=== PATIENT | male | born 1970 | race Caucasian/White ===

== ENCOUNTER 2020-08-03 14:01 | Inpatient (IN) | payer OTHER ==
--- NOTE | 2020-08-02 19:30 | NUR ---
The patient, ALONZO MORALES, 49 y/o, M admitted by LIBORIO PRETTY MD, was given written information regarding hospital policies, unit procedures and contact persons. PT IS FROM [place], NO GUARGDS ARE WITH THE PT. WENT OVER HOME MEALS OF WHIC HE HAS NONE. . HE IS NPO NOW. Valuables were checked and CHECKED HIS BELONGINGS.AND DOCUMENTED THE THE EMR. UPPER DENTURES. WELL LCRN
[~2020-08-03] VITALS: Ht 185.4 cm; Wt 102.1 kg
--- NOTE | 2020-08-03 14:29 | RAD ---
Chest AP portable at 1411: Reason for examination: Short of breath. The heart size is normal. Mediastinum shows a slight shift to the left. Lung granados however show a collapsed right lung field with a large right pneumothorax. Left lung field is clear. No acute bony abnormalities are seen. IMPRESSION: Collapsed right upper, middle and lower lobes with a large right pneumothorax. Electronically signed by: Alexandra Cortez MD (08/03/2020 2:26 PM) ANNIE
[2020-08-03] MEDS ORDERED: BUPIVACAINE MPF 0.5% 30 ML VIAL. INJ ONE (14:30)
[2020-08-03] MEDS ORDERED: LIDOCAINE 2%/EPI 1:100,000 20 ML VIAL. INJ ONE (14:30)
--- NOTE | 2020-08-03 14:30 | EKG ---
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
[2020-08-03 14:46] LABS: BASO # 0.1 x10^3/uL (0.0-0.2); BASO % 1 % (0-3); EOS # 0.1 x10^3/uL (0.0-0.7); EOS % 1 % (0-3); HEMATOCRIT 44.4 % (39.0-53.0); HEMOGLOBIN 15.4 g/dL (13.0-17.5); LYMPH # 1.7 x10^3/uL (1.0-4.8); LYMPH % 18 % (24-48); MEAN CORPUSCULAR HEMOGLOBIN 31 pg (25-35); MEAN CORPUSCULAR HGB CONC 35 g/dL (31-37); MEAN CORPUSCULAR VOLUME 88 fL (79-100); MONO # 1.2 x10^3/uL (0.0-1.1); MONO % 12 % (0-9); NEUT # 6.4 x10^3/uL (1.8-7.7); NEUT % 68 % (31-73); PLATELET COUNT 331 x10^3/uL (140-400); RED BLOOD COUNT 5.03 x10^6/uL (4.30-5.70); WHITE BLOOD COUNT 9.4 x10^3/uL (4.0-11.0)
[2020-08-03 14:53] LABS: BILIRUBIN,URINE NEGATIVE (NEG); CLARITY,URINE CLEAR; COLOR,URINE YELLOW; NITRITE,URINE NEGATIVE (NEG); PROTEIN,URINE NEGATIVE (NEG-TRACE)
--- NOTE | 2020-08-03 14:57 | PHYS DOC ---
Past Medical History Past Medical History: COPD Additional Past Medical Histor: VENTRAL HERNIA Past Surgical History: No Surgical History Smoking Status: Former Smoker Alcohol Use: None Drug Use: None General Adult EDM: Chief Complaint: OTHER COMPLAINTS HPI: HPI: Patient is a 49-year-old male brought to the ED from [facility] due to shortness of breath and radiographic evidence of pneumothorax by the facility. Patient states 07/31/2020 he was lifting weights when he felt a sharp right-sided chest wall pain and ever since he has been having trouble breathing. Patient has never had this happen before. Patient says his pain is minimal. He denies any traumatic events related to this pain. Denies history of prior pneumothorax. Review of Systems: Review of Systems: Constitutional: Denies fever or chills Eyes: Denies redness or eye pain HENT: Denies nasal congestion or sore throat Respiratory: Endorses shortness of breath Cardiovascular: Endorses chest pain, denies palpitations GI: Denies abdominal pain, nausea, or vomiting : Denies dysuria or hematuria Musculoskeletal: Denies back pain or joint pain Integument: Denies rash or skin lesions Neurologic: Denies headache, focal weakness or sensory changes Complete systems were reviewed and found to be within normal limits, except as documented in this note. Current Medications: Current Medications Medications (Trade) Dose Ordered Sig/[facility] Start Time Stop Time Status Last Admin Dose Admin Bupivacaine HCl (Sensorcaine Mpf 0.5%) 30 ml 1X ONCE 08/03/20 14:30 08/03/20 14:31 DC 08/03/20 14:41 30 ML Fentanyl Citrate (Fentanyl 2ml Vial) 75 mcg 1X ONCE 08/03/20 15:00 08/03/20 15:01 Lidocaine/ Epinephrine (LIDOCAINE 2%-EPI 1:100,000 multi-dose) 20 ml 1X ONCE 08/03/20 14:30 08/03/20 14:31 DC 08/03/20 14:41 20 ML Allergies: Allergies: Allergies Coded Allergies Type Severity Reaction Last Updated Verified No Known Drug Allergies 08/03/20 No Physical Exam: PE: Constitutional: Well developed, well nourished, no acute distress, non-toxic appearance HENT: Normocephalic, atraumatic Eyes: PERRL, EOMI, conjunctiva normal, no discharge Neck: Normal range of motion, no tenderness, supple Lungs & Thorax: Increased breath sounds on left thoracic area, right chest with limited breath sounds, no crepitence Abdomen: Soft, no tenderness, no guarding/rebound tenderness/distention Skin: Warm, dry, no erythema, no rash Extremities: No tenderness, ROM intact, no edema Neurologic: Alert and oriented X 3, no focal deficits noted Psychologic: Affect normal, judgment normal Current Patient Data: Vital Signs: Vital Signs Date Time Temp Pulse Resp B/P (MAP) Pulse Ox O2 Delivery O2 Flow Rate FiO2 08/03/20 14:10 98.1 112 22 157/95 (115) 96 Room Air 98.1 EKG: EK08/03/2020 at 1423 hours, heart rate 117 bpm, sinus tachycardia, QRS 138 ms, QT/QTc 330/465 ms, incomplete right bundle branch block Radiology/Procedures: Radiology/Procedures: PROCEDURE: CHEST AP ONLY Chest AP portable at 1411: Reason for examination: Short of breath. The heart size is normal. Mediastinum shows a slight shift to the left. Lung granados however show a collapsed right lung field with a large right pneumothorax. Left lung field is clear. No acute bony abnormalities are seen. IMPRESSION: Collapsed right upper, middle and lower lobes with a large right pneumothorax. Electronically signed by: Alexandra Cortez MD (08/03/2020 2:26 PM) JAMEY PROCEDURE: CHEST AP ONLY Exam: Chest one view INDICATION: Status post chest tube insertion TECHNIQUE: Frontal view of the chest Comparisons: 08/03/2020 FINDINGS: The cardiomediastinal silhouette and pulmonary vessels are within normal limits. Redemonstration of a large right pneumothorax with complete collapse of the right lung. Right-sided chest tube is seen within the soft tissues of the right lateral chest wall and does not enter the thoracic cavity. IMPRESSION: Malpositioned right chest tube, which is entirely the right lateral chest wall. Persistent large right pneumothorax. FOR INTERNAL CODING PURPOSES Critical result: Findings discussed with JOHN MCDANIEL at 08/03/2020 5:17 PM. RESULT CODE: (C) Electronically signed by: Cherelle Danielle MD (08/03/2020 5:18 PM) [id number] PROCEDURE: CHEST AP ONLY Exam: Chest one view INDICATION: Chest tube TECHNIQUE: Frontal view of the chest Comparisons: 08/03/2020 FINDINGS: Interval placement of a right-sided chest tube with tip projecting in the right midlung. The cardiomediastinal silhouette and pulmonary vessels are within normal limits. Improved aeration of the right lung with small persistent pneumothorax at the right lung apex. IMPRESSION: Interval placement of right-sided chest tube with improved aeration of the right lung. Persistent small right pneumothorax. Electronically signed by: Cherelle Danielle MD (08/03/2020 6:59 PM) [id number] Course & Med Decision Making: Course & Med Decision Making Pertinent Labs and Imaging studies reviewed. (See chart for details) Patient is a 49-year-old male brought to the ED by correctional facility due to shortness of breath and radiographic evidence of right pneumothorax. Physical exam findings and chest x-ray performed in the ED no evidence of right pneumothorax. Plan is to place chest tube and admit to hospital for observation and management.. Patient requiring admission for further evaluation and treatment. Discussed with Dr. Mcdowell who is in agreement with admission. Discussed findings and plan with patient, who acknowledges understanding and agreement. Dragon Disclaimer: Dragon Disclaimer: This electronic medical record was generated, in whole or in part, using a voice recognition dictation system. Chest Tube Chest Tube : Chest Tube Location: forth interspace (right) Size of Japanese Tube (cm): 8 Chest Tube Procedure: sterile drapes applied, sterile dressing applied Anesthesia: 0.5% Sensorcaine (50/50 mix with 2% Lidocaine with epi) Volume Anesthetic (ccs): 10 Graves of Air Whitley: Yes Number of Attempts: 2 Tube Drainage: see nurses notes Tube Sutured to Skin: Yes Post Procedure CXR?: Yes Progress Written consent obtained. Time out performed. Hand hygiene utilized. Sterile attire donned. Right chest wall cleaned with ChloraPrep. Anesthesia obtained via a 25-gauge hypodermic needle with (10) mL's of 50/50 mix of Bupivicaine 0.5% and Lidocaine 2% with epinephrine. 8 swazi small chest tube placed at 4th interspace with graves of air. Difficulty with pushing tube further in chest. Tube sutured in place with sterile dressing applied. CXR obtained with findings of malpositioned tube. Tube therefore removed and 2nd attempt with better positioning. Repeat CXR with good positioning. Patient tolerated procedure well and without difficulty. Departure Departure Impression: Primary Impression: Spontaneous pneumothorax Disposition: ADMITTED INPATIENT Admitting Physician: DONTA (July) Condition: GUARDED Justicifation of Admission Dx: Justifications for Admission: Justification of Admission Dx: Yes Comments: Spontaneous pneumothorax Critical Care Time Critical care time was 30 minutes which includes time at bedside, spent in di scussion of patient's care with specialists and/or family members, with interpretation of laboratory and/or radiological studies and is exclusive of procedures. JOHN MCDANIEL DO Aug 03, 2020 14:57
[2020-08-03 14:58] LABS: GFR 78.8
[2020-08-03] MEDS ORDERED: fentaNYL PF VIAL 100 MCG/2 ML VIAL IV ONE ×2 (15:00→18:15)
[2020-08-03 15:05] LABS: ALBUMIN 4.1 g/dL (3.4-5.0); ALBUMIN/GLOBULIN RATIO 1.1 (1.0-1.7); MAGNESIUM 2.3 mg/dL (1.8-2.4); TOTAL BILIRUBIN 0.4 mg/dL (0.2-1.0)
[2020-08-03 15:08] LABS: PROTHROMBIN TIME PATIENT 13.5 SEC (11.7-14.0)
[2020-08-03 15:12] LABS: BACTERIA,URINE 0 /HPF (0-FEW); RBC,URINE 0 /HPF (0-2); WBC,URINE 0 /HPF (0-4)
[2020-08-03] MEDS ORDERED: KETOROLAC 15 MG/ML VIAL. ONE (16:17)
[2020-08-03] MEDS ORDERED: KETOROLAC 15 MG/ML VIAL. IVP ONE (16:30)
[2020-08-03] MEDS ORDERED: fentaNYL PF VIAL 100 MCG/2 ML VIAL IVP ONE (16:30)
--- NOTE | 2020-08-03 17:21 | RAD ---
Exam: Chest one view INDICATION: Status post chest tube insertion TECHNIQUE: Frontal view of the chest Comparisons: 08/03/2020 FINDINGS: The cardiomediastinal silhouette and pulmonary vessels are within normal limits. Redemonstration of a large right pneumothorax with complete collapse of the right lung. Right-sided chest tube is seen within the soft tissues of the right lateral chest wall and does not enter the thoracic cavity. IMPRESSION: Malpositioned right chest tube, which is entirely the right lateral chest wall. Persistent large right pneumothorax. FOR INTERNAL CODING PURPOSES Critical result: Findings discussed with JOHN MCDANIEL at 08/03/2020 5:17 PM. RESULT CODE: (C) Electronically signed by: Cherelle Danielle MD (08/03/2020 5:18 PM) [id number]
[2020-08-03] MEDS ORDERED: ONDANSETRON PF 4 MG/2 ML VIAL. IV PRN ×2 (17:30→18:00)
--- NOTE | 2020-08-03 17:55 | PDOC1 ---
History and Physical Date of Admission Date of Admission DATE: 08/03/20 TIME: 17:54 Identification/Chief Complaint Chief Complaint Chest pain Source Source: Chart review, Patient History of Present Illness History of Present Illness Mr Green is a 49-year-old male w/ PMHx COPD, ventral hernia who brought to the ED from [facility] due to shortness of breath and radiographic evidence of pneumothorax by the facility. On 07/31/2020 he was lifting weights when he felt short of breath and a few hours later noted a sharp right-sided chest wall pain and persistent dyspnea on exertion since then. EKG noted with HR117 bpm, sinus tachycardia, QRS 138 ms, QT/QTc 330/465 ms, incomplete right bundle branch block CXR reveals large right pneumothorax with left shift mediastinum. Labs with INR 1.1, WBC 9.4 Hb 15.4, platelets 331, NA 140, K4, BUN 14, CR 1, glucose 104, troponin 0, CK 551. Chest tube initially placed in ED slipped out, postplacement chest x-ray showed no improvement in pneumothorax, and chest tube was replaced and significant improvement with small residual pneumothorax after replacing chest tube placement. After his second chest tube patient did note some right-sided sharp pain had obvious increase in his visible ease of breathing. No airleak noted on Pleurx and was hooked up to suction. Admit to hospital for observation and management.. Past Medical History Pulmonary: COPD Past Surgical History Past Surgical History: Hernia Repair Family History Family History: High Cholestrol Social History Smoke: Quit ALCOHOL: none Drugs: None Current Problem List Problem List Problems Medical Problems: (1) Spontaneous pneumothorax Status: Acute Current Medications Current Medications Current Medications Lidocaine/ Epinephrine (LIDOCAINE 2%-EPI 1:100,000 multi-dose) 20 ml 1X ONCE INJ Last administered on 08/03/20at 14:41; Start 08/03/20 at 14:30; Stop 08/03/20 at 14:31; Status DC Bupivacaine HCl (Sensorcaine Mpf 0.5%) 30 ml 1X ONCE INJ Last administered on 08/03/20at 14:41; Start 08/03/20 at 14:30; Stop 08/03/20 at 14:31; Status DC Fentanyl Citrate (Fentanyl 2ml Vial) 75 mcg 1X ONCE IV Last administered on 08/03/20at 14:56; Start 08/03/20 at 15:00; Stop 08/03/20 at 15:01; Status DC Ketorolac Tromethamine (Toradol 15mg Vial) 15 mg STK-MED ONCE .ROUTE ; Start 08/03/20 at 16:17; Stop 08/03/20 at 16:17; Status DC Ketorolac Tromethamine (Toradol 15mg Vial) 15 mg 1X ONCE IVP Last administered on 08/03/20at 16:44; Start 08/03/20 at 16:30; Stop 08/03/20 at 16:31; Status DC Fentanyl Citrate (Fentanyl 2ml Vial) 50 mcg 1X ONCE IVP Last administered on 08/03/20at 16:43; Start 08/03/20 at 16:30; Stop 08/03/20 at 16:31; Status DC Ondansetron HCl (Zofran) 4 mg PRN Q8HRS PRN IV NAUSEA/VOMITING; Start 08/03/20 at 17:30; Stop 08/04/20 at 17:29 Allergies Allergies: Coded Allergies: No Known Drug Allergies (Unverified , 08/03/20) ROS General: YES: Fatigue, Malaise; No: Chills, Night Sweats, Appetite, Other PSYCHOLOGICAL ROS: No: Anxiety, Behavioral Disorder, Concentration difficultie, Decreased libido, Depression, Disorientation, Hallucinations, Hostility, Irritablity, Memory difficulties, Mood Swings, Obsessive thoughts, Physical abuse, Sexual abuse, Sleep disturbances, Suicidal ideation, Other Eyes: No Blurry vision, No Decreased vision, No Double vision, No Dry eyes, No Excessive tearing, No Eye Pain, No Itchy Eyes, No Loss of vision, No Photophobia, No Scotomata, No Uses contacts, No Uses glasses, No Other HEENT: No: Heacaches, Visual Changes, Hearing change, Nasal congestion, Nasal discharge, Oral lesions, Sinus pain, Sore Throat, Epistaxis, Sneezing, Snoring, Tinnitus, Vertigo, Vocal changes, Other ALLERGY AND IMMUNOLOGY: No: Hives, Insect Bite Sensitivity, Itchy/Watery Eyes, Nasal Congestion, Post Nasal Drip, Seasonal Allergies, Other Hematological and Lymphatic: No: Bleeding Problems, Blood Clots, Blood Transfusions, Brusing, Night Sweats, Pallor, Swollen Lymph Nodes, Other ENDOCRINE: No: Breast Changes, Galactorrhea, Hair Pattern Changes, Hot Flashes, Malaise/lethargy, Mood Swings, Palpitations, Polydipsia/polyuria, Skin Changes, Temperature Intolerance, Unexpected Weight Changes, Other Breast: No New/Changing Breast Lumps, No Nipple changes, No Nipple discharge, No Other Respiratory: YES: Cough, Pleuritic Pain, Shortness of breath; No: Hemoptysis, Orthopnea, SOB with excertion, Sputum Changes, Stridor, Tachypnea, Wheezing, Other Cardiovascular: yes Chest Pain; No Palpitations, No Orthopnea, No Paroxysmal Noc. Dyspnea, No Edema, No Lt Headedness, No Other Gastrointestinal: No Nausea, No Vomiting, No Abdominal Pain, No Diarrhea, No Constipation, No Melena, No Hematochezia, No Other Genitourinary: No Dysuria, No Frequency, No Incontinence, No Hematuria, No Retention, No Discharge, No Urgency, No Pain, No Flank Pain, No Other, No , No , No , No , No , No , No Musculoskeletal: No Gait Disturbance, No Joint Pain, No Joint Stiffness, No Joint Swelling, No Muscle Pain, No Muscular Weakness, No Pain In:, No Swelling In:, No Other Neurological: No Behavorial Changes, No Bowel/Bladder ControlChng, No Confusion, No Dizziness, No Gait Disturbance, No Headaches, No Impaired Acetylene Operator rd/balance, No Memory Loss, No Numbness/Tingling, No Seizures, No Speech Problems, No Tremors, No Visual Changes, No Weakness, No Other Skin: No Dry Skin, No Eczema, No Hair Changes, No Lumps, No Mole Changes, No Mottling, No Nail Changes, No Pruritus, No Rash, No Skin Lesion Changes, No Other, No Acne Physical Exam General: Alert, Oriented X3, Cooperative, mild distress HEENT: Atraumatic, PERRLA, EOMI, Mucous membr. moist/pink Lungs: Clear to auscultation, Normal air movement, Other (Right mid-axillary chest tube small bore) Abdomen: Normal bowel sounds, Soft, No tenderness, No hepatosplenomegaly, No masses Rectal Exam: not examined Extremities: No clubbing, No cyanosis, No edema, Normal pulses, No tenderness/swelling Skin: No rashes, No breakdown, No significant lesion Neuro: Normal gait, Normal speech, Strength at 5/5 X4 ext, Normal tone, Sensation intact, Cranial nerves 3-12 NL, Reflexes 2+ Psych/Mental Status: Mental status NL, Mood NL Vitals Vitals Vital Signs Date Time Temp Pulse Resp B/P (MAP) Pulse Ox O2 Delivery O2 Flow Rate FiO2 08/03/20 16:53 88 142/77 (98) 94 Room Air 08/03/20 14:10 98.1 22 98.1 Labs Labs Laboratory Tests Test 08/03/20 14:12 08/03/20 14:40 White Blood Count 9.4 x10^3/uL (4.0-11.0) Red Blood Count 5.03 x10^6/uL (4.30-5.70) Hemoglobin 15.4 g/dL (13.0-17.5) Hematocrit 44.4 % (39.0-53.0) Mean Corpuscular Volume 88 fL (79-100) Mean Corpuscular Hemoglobin 31 pg (25-35) Mean Corpuscular Hemoglobin Concent 35 g/dL (31-37) Red Cell Distribution Width 13.0 % (11.5-14.5) Platelet Count 331 x10^3/uL (140-400) Neutrophils (%) (Auto) 68 % (31-73) Lymphocytes (%) (Auto) 18 % (24-48) Monocytes (%) (Auto) 12 % (0-9) Eosinophils (%) (Auto) 1 % (0-3) Basophils (%) (Auto) 1 % (0-3) Neutrophils # (Auto) 6.4 x10^3/uL (1.8-7.7) Lymphocytes # (Auto) 1.7 x10^3/uL (1.0-4.8) Monocytes # (Auto) 1.2 x10^3/uL (0.0-1.1) Eosinophils # (Auto) 0.1 x10^3/uL (0.0-0.7) Basophils # (Auto) 0.1 x10^3/uL (0.0-0.2) Prothrombin Time 13.5 SEC (11.7-14.0) Prothromb Time International Ratio 1.1 (0.8-1.1) Activated Partial Thromboplast Time 29 SEC (24-38) Sodium Level 140 mmol/L (136-145) Potassium Level 4.0 mmol/L (3.5-5.1) Chloride Level 106 mmol/L (98-107) Carbon Dioxide Level 28 mmol/L (21-32) Anion Gap 6 (6-14) Blood Urea Nitrogen 14 mg/dL (8-26) Creatinine 1.0 mg/dL (0.7-1.3) Estimated GFR (Cockcroft-Gault) 78.8 BUN/Creatinine Ratio 14 (6-20) Glucose Level 104 mg/dL (70-99) Calcium Level 9.0 mg/dL (8.5-10.1) Magnesium Level 2.3 mg/dL (1.8-2.4) Total Bilirubin 0.4 mg/dL (0.2-1.0) Aspartate Amino Transf (AST/SGOT) 37 U/L (15-37) Alanine Aminotransferase (ALT/SGPT) 31 U/L (16-63) Alkaline Phosphatase 91 U/L (46-116) Creatine Kinase 551 U/L (39-308) Creatine Kinase MB (Mass) 1.5 ng/mL (0.0-3.6) Creatine Kinase MB Relative Index 0.3 % (0-4) Troponin I Quantitative < 0.017 ng/mL (0.000-0.055) Total Protein 8.0 g/dL (6.4-8.2) Albumin 4.1 g/dL (3.4-5.0) Albumin/Globulin Ratio 1.1 (1.0-1.7) Urine Collection Type Void Urine Color Yellow Urine Clarity Clear Urine pH 6.0 (<5.0-8.0) Urine Specific Bentley 1.020 (1.000-1.030) Urine Protein Negative mg/dL (NEG-TRACE) Urine Glucose (UA) Negative mg/dL (NEG) Urine Ketones (Stick) Negative mg/dL (NEG) Urine Blood Negative (NEG) Urine Nitrite Negative (NEG) Urine Bilirubin Negative (NEG) Urine Urobilinogen Dipstick 1.0 mg/dL (0.2 mg/dL) Urine Leukocyte Esterase Negative (NEG) Urine RBC 0 /HPF (0-2) Urine WBC 0 /HPF (0-4) Urine Squamous Epithelial Cells None /LPF Urine Bacteria 0 /HPF (0-FEW) Urine Mucus Marked /LPF Laboratory Tests Test 08/03/20 14:12 08/03/20 14:40 White Blood Count 9.4 x10^3/uL (4.0-11.0) Red Blood Count 5.03 x10^6/uL (4.30-5.70) Hemoglobin 15.4 g/dL (13.0-17.5) Hematocrit 44.4 % (39.0-53.0) Mean Corpuscular Volume 88 fL (79-100) Mean Corpuscular Hemoglobin 31 pg (25-35) Mean Corpuscular Hemoglobin Concent 35 g/dL (31-37) Red Cell Distribution Width 13.0 % (11.5-14.5) Platelet Count 331 x10^3/uL (140-400) Neutrophils (%) (Auto) 68 % (31-73) Lymphocytes (%) (Auto) 18 % (24-48) Monocytes (%) (Auto) 12 % (0-9) Eosinophils (%) (Auto) 1 % (0-3) Basophils (%) (Auto) 1 % (0-3) Neutrophils # (Auto) 6.4 x10^3/uL (1.8-7.7) Lymphocytes # (Auto) 1.7 x10^3/uL (1.0-4.8) Monocytes # (Auto) 1.2 x10^3/uL (0.0-1.1) Eosinophils # (Auto) 0.1 x10^3/uL (0.0-0.7) Basophils # (Auto) 0.1 x10^3/uL (0.0-0.2) Prothrombin Time 13.5 SEC (11.7-14.0) Prothromb Time International Ratio 1.1 (0.8-1.1) Activated Partial Thromboplast Time 29 SEC (24-38) Sodium Level 140 mmol/L (136-145) Potassium Level 4.0 mmol/L (3.5-5.1) Chloride Level 106 mmol/L (98-107) Carbon Dioxide Level 28 mmol/L (21-32) Anion Gap 6 (6-14) Blood Urea Nitrogen 14 mg/dL (8-26) Creatinine 1.0 mg/dL (0.7-1.3) Estimated GFR (Cockcroft-Gault) 78.8 BUN/Creatinine Ratio 14 (6-20) Glucose Level 104 mg/dL (70-99) Calcium Level 9.0 mg/dL (8.5-10.1) Magnesium Level 2.3 mg/dL (1.8-2.4) Total Bilirubin 0.4 mg/dL (0.2-1.0) Aspartate Amino Transf (AST/SGOT) 37 U/L (15-37) Alanine Aminotransferase (ALT/SGPT) 31 U/L (16-63) Alkaline Phosphatase 91 U/L (46-116) Creatine Kinase 551 U/L (39-308) Creatine Kinase MB (Mass) 1.5 ng/mL (0.0-3.6) Creatine Kinase MB Relative Index 0.3 % (0-4) Troponin I Quantitative < 0.017 ng/mL (0.000-0.055) Total Protein 8.0 g/dL (6.4-8.2) Albumin 4.1 g/dL (3.4-5.0) Albumin/Globulin Ratio 1.1 (1.0-1.7) Urine Collection Type Void Urine Color Yellow Urine Clarity Clear Urine pH 6.0 (<5.0-8.0) Urine Specific Bentley 1.020 (1.000-1.030) Urine Protein Negative mg/dL (NEG-TRACE) Urine Glucose (UA) Negative mg/dL (NEG) Urine Ketones (Stick) Negative mg/dL (NEG) Urine Blood Negative (NEG) Urine Nitrite Negative (NEG) Urine Bilirubin Negative (NEG) Urine Urobilinogen Dipstick 1.0 mg/dL (0.2 mg/dL) Urine Leukocyte Esterase Negative (NEG) Urine RBC 0 /HPF (0-2) Urine WBC 0 /HPF (0-4) Urine Squamous Epithelial Cells None /LPF Urine Bacteria 0 /HPF (0-FEW) Urine Mucus Marked /LPF Images Images CXR: The heart size is normal. Mediastinum shows a slight shift to the left. Lung granados however show a collapsed right lung field with a large right pneumothorax. Left lung field is clear. No acute bony abnormalities are seen. IMPRESSION: Collapsed right upper, middle and lower lobes with a large right pneumothorax. VTE Prophylaxis Ordered VTE Prophylaxis Devices: No VTE Pharmacological Prophylaxi: Yes Assessment/Plan Assessment/Plan A/P: Chest pain - likely 2/2 PTX, will trend troponins, monitor on telemetry overnight. Tramadol/tylenol and toradol/morphine for pain control. Right pneumothorax - spontaneous, likely exertional with h/o COPD. Will cont on O2. Repeat CXR in AM. Cont low intermittent suction overnight to pleur-ex system. Consult Pulm Ex-smoker - reinforced cessation FEN - General diet PPX - ambulatory FULL CODE Dispo - inpatient for resolution Justifications for Admission Other Justification LIBORIO PRETTY MD Aug 03, 2020 17:55
[2020-08-03] MEDS ORDERED: ALBUTEROL SULFATE 2.5 MG/3 ML NEBU. NEB PRN (18:00)
[2020-08-03] MEDS ORDERED: guaiFENesin DM 200MG/20MG 10 ML SYRUP PO PRN (18:00)
--- NOTE | 2020-08-03 19:02 | RAD ---
Exam: Chest one view INDICATION: Chest tube TECHNIQUE: Frontal view of the chest Comparisons: 08/03/2020 FINDINGS: Interval placement of a right-sided chest tube with tip projecting in the right midlung. The cardiomediastinal silhouette and pulmonary vessels are within normal limits. Improved aeration of the right lung with small persistent pneumothorax at the right lung apex. IMPRESSION: Interval placement of right-sided chest tube with improved aeration of the right lung. Persistent small right pneumothorax. Electronically signed by: Cherelle Danielle MD (08/03/2020 6:59 PM) [id number]
[2020-08-03 19:30] VITALS: BP 159/85
[2020-08-03] MEDS ORDERED: diphenhydrAMINE HCL 25 MG CAPSULE PO PRN (20:30)
[2020-08-03] MEDS ORDERED: ZOLPIDEM 5 MG TABLET. PO PRN (20:30)
[2020-08-03] MEDS ORDERED: ACETAMINOPHEN 325 MG TABLET. PO PRN (20:30)
[2020-08-03] MEDS ORDERED: MORPHINE SULFATE 2 MG/ML VIAL. IV PRN (20:30)
[2020-08-03] MEDS ORDERED: ASCO500T4 PO (21:03)
[2020-08-03] MEDS ORDERED: IBUP-1007 PO (21:03)
[2020-08-03 23:30] VITALS: BP 131/83
[2020-08-04 03:40] VITALS: BP 140/87
[2020-08-04 04:17] LABS: BASO % 1 % (0-3); EOS # 0.1 x10^3/uL (0.0-0.7); EOS % 1 % (0-3); HEMATOCRIT 41.4 % (39.0-53.0); HEMOGLOBIN 14.1 g/dL (13.0-17.5); LYMPH # 1.8 x10^3/uL (1.0-4.8); LYMPH % 20 % (24-48); MEAN CORPUSCULAR HEMOGLOBIN 30 pg (25-35); MEAN CORPUSCULAR HGB CONC 34 g/dL (31-37); MEAN CORPUSCULAR VOLUME 89 fL (79-100); MONO # 1.2 x10^3/uL (0.0-1.1); MONO % 13 % (0-9); NEUT # 5.8 x10^3/uL (1.8-7.7); NEUT % 65 % (31-73); PLATELET COUNT 299 x10^3/uL (140-400); RED BLOOD COUNT 4.65 x10^6/uL (4.30-5.70); RED CELL DISTRIBUTION WIDTH 13.2 % (11.5-14.5)
[2020-08-04 04:42] LABS: CALCIUM 8.3 mg/dL (8.5-10.1); GFR 78.8; POTASSIUM 4.2 mmol/L (3.5-5.1)
[2020-08-04 07:00] VITALS: BP 120/78
--- NOTE | 2020-08-04 08:21 | RAD ---
CHEST AP ONLY History: Reason: Pneumothorax f/u / Spl. Instructions: / History: Comparison: August 03, 2020 Findings: Decreased right pneumothorax. Stable right pigtail pleural catheter. Patchy right midlung opacities, unchanged. No pleural effusion. Normal heart size. Impression: 1. Decreased right pneumothorax. Stable pigtail pleural catheter. 2. Patchy right midlung opacity, unchanged. Electronically signed by: Kostas Varela DO (08/04/2020 8:18 AM) [id number]
[2020-08-04] MEDS ORDERED: IPRATRPIUM/ALBUTEROL 0.5/2.5MG 3 ML NEBU. NEB SCH (08:30)
--- NOTE | 2020-08-04 08:56 | CONS ---
DATE OF CONSULTATION: 08/04/2020 I was asked to see this 49-year-old gentleman for shortness of breath and pneumothorax. HISTORY OF PRESENT ILLNESS: The patient has a history of [id number] smoking, quit smoking 7 years ago. He has COPD. He was brought to the Emergency Room from a correctional facility yesterday. On Thursday (today is Thursday), he had some chest pain while he was lifting weights. The next day he did have some shortness of breath and cough. Finally, he was brought to the Emergency Room yesterday. His chest x-ray showed a large right pneumothorax. This is his first pneumothorax. A chest tube was placed in the Emergency Room. He does have cough with some sputum production. He has discomfort on his chest tube site. He has had shortness of breath. He is on albuterol, which he uses p.r.n. PAST MEDICAL HISTORY: COPD. He had COVID-19 in March and ventral hernia. ALLERGIES: No known drug allergies. MEDICATIONS: Currently, he is on p.r.n. morphine. SOCIAL HISTORY: History of [id number] smoking, stopped smoking 7 years ago. REVIEW OF SYSTEMS: As mentioned above, other systems otherwise negative. PHYSICAL EXAMINATION: GENERAL: This is an overweight gentleman. VITAL SIGNS: His O2 saturation on room air is 93%, respiratory rate 20, heart rate is 82, blood pressure 140/87, temperature 98.8. HEENT: Normocephalic and atraumatic. Pupils are equal, round, and reactive to light. Nose is clear. Throat is clear. NECK: There is no JVD, lymphadenopathy, or thyromegaly. CARDIOVASCULAR: Regular rate and rhythm. PMI is nondisplaced. CHEST: On inspection, there is a right chest tube in place. LUNGS: There are bilateral diminished breath sounds. ABDOMEN: Soft and obese. Bowel sounds are good. EXTREMITIES: There is no edema. LYMPHATICS: There is no lymphadenopathy. SKIN: Has tattoos. NEUROLOGIC: Alert and oriented. LABORATORY DATA: I reviewed the following lab data. His chest x-ray on arrival to the Emergency Room showed right large pneumothorax. Chest x-ray after chest tube placement showed improved aeration with a small right apical pneumothorax. WBC 9, hemoglobin 14.1, platelets of 299. Sodium 142, potassium 4.2, chloride 106, CO2 of 26, glucose 93, BUN 17, and creatinine 1. Troponin less than 0.017. INR 1.1, PTT 29. IMPRESSION: 1. Dyspnea secondary to pneumothorax. 2. Right spontaneous pneumothorax status post chest tube. 3. Chronic obstructive pulmonary disease. 4. Ex-smoker. 5. Ventral hernia. 6. History of COVID-19 in March, he was not hospitalized, he was in correctional facility. PLAN AND RECOMMENDATIONS: 1. Continue not smoking. 2. Titrate FiO2 to keep O2 saturation 92%. 3. I will review his chest x-ray this morning. Continue chest tube suction -20 at this time. 4. Start bronchodilator. 5. He would require a CT of the chest. 6. Start Lovenox for DVT prophylaxis. 7. The findings and recommendations were discussed with the patient and RN. Thank you very much for allowing me to participate in the care of this very nice gentleman. TOBY LA M.D. : CHICA/yanni JOB#: [id number] / [id number]
[2020-08-04] MEDS: ENOXAPARIN 40 MG/0.4 ML SYRINGE. SQ SCH (09:16)
--- NOTE | 2020-08-04 10:29 | PDOC ---
[facility] PROGRESS NOTE Date of Service DOS: DATE: 08/04/20 TIME: 10:20 Chief Complaint Chief Complaint SOA, spontaneous pneumothorax History of Present Illness History of Present Illness 08/04/2020 Pt seen and examined. Chart reviewed. Discussed with RN. Pt sitting up in bed, NAD. Clean, dry, intact dressing: stable R pigtail pleural cath Tolerating chest tube well, denies pain, denies SOA. Vitals/I&O Vitals/I&O: Vital Signs Date Time Temp Pulse Resp B/P (MAP) Pulse Ox O2 Delivery O2 Flow Rate FiO2 08/04/20 07:00 97.7 81 22 120/78 (92) 92 Room Air 97.7 I & O 08/03/20 08/03/20 08/04/20 15:00 23:00 07:00 Intake Total 760 ml Output Total 200 ml Balance 560 ml Physical Exam General: Alert, Oriented X3, Cooperative, mild distress Heart: Regular rate Abdomen: Normal bowel sounds, Soft, No tenderness, No hepatosplenomegaly, No masses Extremities: No clubbing, No cyanosis, No edema, Normal pulses, No tenderness/swelling Skin: No rashes, No breakdown, No significant lesion Labs Labs: Laboratory Tests Test 08/03/20 14:12 08/03/20 14:40 08/04/20 04:00 White Blood Count 9.4 x10^3/uL (4.0-11.0) 9.0 x10^3/uL (4.0-11.0) Red Blood Count 5.03 x10^6/uL (4.30-5.70) 4.65 x10^6/uL (4.30-5.70) Hemoglobin 15.4 g/dL (13.0-17.5) 14.1 g/dL (13.0-17.5) Hematocrit 44.4 % (39.0-53.0) 41.4 % (39.0-53.0) Mean Corpuscular Volume 88 fL (79-100) 89 fL (79-100) Mean Corpuscular Hemoglobin 31 pg (25-35) 30 pg (25-35) Mean Corpuscular Hemoglobin Concent 35 g/dL (31-37) 34 g/dL (31-37) Red Cell Distribution Width 13.0 % (11.5-14.5) 13.2 % (11.5-14.5) Platelet Count 331 x10^3/uL (140-400) 299 x10^3/uL (140-400) Neutrophils (%) (Auto) 68 % (31-73) 65 % (31-73) Lymphocytes (%) (Auto) 18 % (24-48) 20 % (24-48) Monocytes (%) (Auto) 12 % (0-9) 13 % (0-9) Eosinophils (%) (Auto) 1 % (0-3) 1 % (0-3) Basophils (%) (Auto) 1 % (0-3) 1 % (0-3) Neutrophils # (Auto) 6.4 x10^3/uL (1.8-7.7) 5.8 x10^3/uL (1.8-7.7) Lymphocytes # (Auto) 1.7 x10^3/uL (1.0-4.8) 1.8 x10^3/uL (1.0-4.8) Monocytes # (Auto) 1.2 x10^3/uL (0.0-1.1) 1.2 x10^3/uL (0.0-1.1) Eosinophils # (Auto) 0.1 x10^3/uL (0.0-0.7) 0.1 x10^3/uL (0.0-0.7) Basophils # (Auto) 0.1 x10^3/uL (0.0-0.2) 0.0 x10^3/uL (0.0-0.2) Prothrombin Time 13.5 SEC (11.7-14.0) Prothromb Time International Ratio 1.1 (0.8-1.1) Activated Partial Thromboplast Time 29 SEC (24-38) Sodium Level 140 mmol/L (136-145) 142 mmol/L (136-145) Potassium Level 4.0 mmol/L (3.5-5.1) 4.2 mmol/L (3.5-5.1) Chloride Level 106 mmol/L (98-107) 106 mmol/L (98-107) Carbon Dioxide Level 28 mmol/L (21-32) 26 mmol/L (21-32) Anion Gap 6 (6-14) 10 (6-14) Blood Urea Nitrogen 14 mg/dL (8-26) 17 mg/dL (8-26) Creatinine 1.0 mg/dL (0.7-1.3) 1.0 mg/dL (0.7-1.3) Estimated GFR (Cockcroft-Gault) 78.8 78.8 BUN/Creatinine Ratio 14 (6-20) Glucose Level 104 mg/dL (70-99) 93 mg/dL (70-99) Calcium Level 9.0 mg/dL (8.5-10.1) 8.3 mg/dL (8.5-10.1) Magnesium Level 2.3 mg/dL (1.8-2.4) Total Bilirubin 0.4 mg/dL (0.2-1.0) Aspartate Amino Transf (AST/SGOT) 37 U/L (15-37) Alanine Aminotransferase (ALT/SGPT) 31 U/L (16-63) Alkaline Phosphatase 91 U/L (46-116) Creatine Kinase 551 U/L (39-308) Creatine Kinase MB (Mass) 1.5 ng/mL (0.0-3.6) Creatine Kinase MB Relative Index 0.3 % (0-4) Troponin I Quantitative < 0.017 ng/mL (0.000-0.055) < 0.017 ng/mL (0.000-0.055) Total Protein 8.0 g/dL (6.4-8.2) Albumin 4.1 g/dL (3.4-5.0) Albumin/Globulin Ratio 1.1 (1.0-1.7) Urine Collection Type Void Urine Color Yellow Urine Clarity Clear Urine pH 6.0 (<5.0-8.0) Urine Specific [place] 1.020 (1.000-1.030) Urine Protein Negative mg/dL (NEG-TRACE) Urine Glucose (UA) Negative mg/dL (NEG) Urine Ketones (Stick) Negative mg/dL (NEG) Urine Blood Negative (NEG) Urine Nitrite Negative (NEG) Urine Bilirubin Negative (NEG) Urine Urobilinogen Dipstick 1.0 mg/dL (0.2 mg/dL) Urine Leukocyte Esterase Negative (NEG) Urine RBC 0 /HPF (0-2) Urine WBC 0 /HPF (0-4) Urine Squamous Epithelial Cells None /LPF Urine Bacteria 0 /HPF (0-FEW) Urine Mucus Marked /LPF Review of Systems Review of Systems: Pt denies pain, pt denies SOA, pt denies NVD. Assessment and Plan Assessmemt and Plan Problems Medical Problems: (1) Spontaneous pneumothorax Status: Acute Assessment: Spontaneous pneumo Plan: Continue chest tube monitoring Cardiac monitoring Daily CXR Home meds DVT prophylaxis PT/OT Full code Awaiting COVID result Hope to DC chest tube when OK with Pulm Appreciate specialist input. Comment Review of Relevant I have reviewed the following items elisa (where applicable) has been applied. Medications: Current Medications Medications (Trade) Dose Ordered Sig/David Route PRN Reason Start Time Stop Time Status Last Admin Dose Admin Lidocaine/ Epinephrine (LIDOCAINE 2%-EPI 1:100,000 multi-dose) 20 ml 1X ONCE INJ 08/03/20 14:30 08/03/20 14:31 DC 08/03/20 14:41 Bupivacaine HCl (Sensorcaine Mpf 0.5%) 30 ml 1X ONCE INJ 08/03/20 14:30 08/03/20 14:31 DC 08/03/20 14:41 Fentanyl Citrate (Fentanyl 2ml Vial) 75 mcg 1X ONCE IV 08/03/20 15:00 08/03/20 15:01 DC 08/03/20 14:56 Ketorolac Tromethamine (Toradol 15mg Vial) 15 mg 1X ONCE IVP 08/03/20 16:30 08/03/20 16:31 DC 08/03/20 16:44 Fentanyl Citrate (Fentanyl 2ml Vial) 50 mcg 1X ONCE IVP 08/03/20 16:30 08/03/20 16:31 DC 08/03/20 16:43 Fentanyl Citrate (Fentanyl 2ml Vial) 50 mcg 1X ONCE IV 08/03/20 18:15 08/03/20 18:16 DC 08/03/20 18:21 Enoxaparin Sodium (Lovenox 40mg Syringe) 40 mg Q24H SQ 08/04/20 09:00 08/04/20 09:16 Justifications for Admission Other Justification LIVAN IRENE III DO Aug 04, 2020 10:29
[2020-08-04 11:00] VITALS: BP 133/83
[2020-08-04] MEDS: IPRATRPIUM/ALBUTEROL 0.5/2.5MG 3 ML NEBU. NEB SCH ×3 (11:59→19:47)
[2020-08-04] MEDS: traMADol 50 MG TABLET PO PRN (14:48)
[2020-08-04 15:00] VITALS: BP 142/77
[2020-08-04 19:20] VITALS: BP 149/93
[2020-08-04 23:40] VITALS: BP 151/78
[2020-08-05 03:45] VITALS: BP 129/84
[2020-08-05 07:00] VITALS: BP 131/86
[2020-08-05] MEDS: IPRATRPIUM/ALBUTEROL 0.5/2.5MG 3 ML NEBU. NEB SCH ×4 (08:00→20:26)
[2020-08-05] MEDS: ENOXAPARIN 40 MG/0.4 ML SYRINGE. SQ SCH (09:20)
[2020-08-05] MEDS: traMADol 50 MG TABLET PO PRN ×2 (09:20→21:26)
--- NOTE | 2020-08-05 09:54 | PDOC ---
PULMONARY PROGRESS NOTES DATE: 08/05/20 TIME: 09:44 Subjective chest discomfort on ct area no sob, has occ cough Vitals Vital Signs Date Time Temp Pulse Resp B/P (MAP) Pulse Ox O2 Delivery O2 Flow Rate FiO2 08/05/20 09:20 96 Room Air 08/05/20 07:00 98.9 78 18 131/86 (101) 98.9 ROS: No Nausea General: Alert, Oriented X4 HEENT: Other (nc at perrl ) Lungs: Other ( r ct deminished bs) Cardiovascular: S1, S2 Abdomen: Soft, Non-tender Neuro Exam: Alert Extremities: No Edema Skin: Warm Labs Laboratory Tests Test 08/03/20 14:12 08/03/20 14:40 08/04/20 04:00 White Blood Count 9.4 x10^3/uL (4.0-11.0) 9.0 x10^3/uL (4.0-11.0) Red Blood Count 5.03 x10^6/uL (4.30-5.70) 4.65 x10^6/uL (4.30-5.70) Hemoglobin 15.4 g/dL (13.0-17.5) 14.1 g/dL (13.0-17.5) Hematocrit 44.4 % (39.0-53.0) 41.4 % (39.0-53.0) Mean Corpuscular Volume 88 fL (79-100) 89 fL (79-100) Mean Corpuscular Hemoglobin 31 pg (25-35) 30 pg (25-35) Mean Corpuscular Hemoglobin Concent 35 g/dL (31-37) 34 g/dL (31-37) Red Cell Distribution Width 13.0 % (11.5-14.5) 13.2 % (11.5-14.5) Platelet Count 331 x10^3/uL (140-400) 299 x10^3/uL (140-400) Neutrophils (%) (Auto) 68 % (31-73) 65 % (31-73) Lymphocytes (%) (Auto) 18 % (24-48) 20 % (24-48) Monocytes (%) (Auto) 12 % (0-9) 13 % (0-9) Eosinophils (%) (Auto) 1 % (0-3) 1 % (0-3) Basophils (%) (Auto) 1 % (0-3) 1 % (0-3) Neutrophils # (Auto) 6.4 x10^3/uL (1.8-7.7) 5.8 x10^3/uL (1.8-7.7) Lymphocytes # (Auto) 1.7 x10^3/uL (1.0-4.8) 1.8 x10^3/uL (1.0-4.8) Monocytes # (Auto) 1.2 x10^3/uL (0.0-1.1) 1.2 x10^3/uL (0.0-1.1) Eosinophils # (Auto) 0.1 x10^3/uL (0.0-0.7) 0.1 x10^3/uL (0.0-0.7) Basophils # (Auto) 0.1 x10^3/uL (0.0-0.2) 0.0 x10^3/uL (0.0-0.2) Prothrombin Time 13.5 SEC (11.7-14.0) Prothromb Time International Ratio 1.1 (0.8-1.1) Activated Partial Thromboplast Time 29 SEC (24-38) Sodium Level 140 mmol/L (136-145) 142 mmol/L (136-145) Potassium Level 4.0 mmol/L (3.5-5.1) 4.2 mmol/L (3.5-5.1) Chloride Level 106 mmol/L (98-107) 106 mmol/L (98-107) Carbon Dioxide Level 28 mmol/L (21-32) 26 mmol/L (21-32) Anion Gap 6 (6-14) 10 (6-14) Blood Urea Nitrogen 14 mg/dL (8-26) 17 mg/dL (8-26) Creatinine 1.0 mg/dL (0.7-1.3) 1.0 mg/dL (0.7-1.3) Estimated GFR (Cockcroft-Gault) 78.8 78.8 BUN/Creatinine Ratio 14 (6-20) Glucose Level 104 mg/dL (70-99) 93 mg/dL (70-99) Calcium Level 9.0 mg/dL (8.5-10.1) 8.3 mg/dL (8.5-10.1) Magnesium Level 2.3 mg/dL (1.8-2.4) Total Bilirubin 0.4 mg/dL (0.2-1.0) Aspartate Amino Transf (AST/SGOT) 37 U/L (15-37) Alanine Aminotransferase (ALT/SGPT) 31 U/L (16-63) Alkaline Phosphatase 91 U/L (46-116) Creatine Kinase 551 U/L (39-308) Creatine Kinase MB (Mass) 1.5 ng/mL (0.0-3.6) Creatine Kinase MB Relative Index 0.3 % (0-4) Troponin I Quantitative < 0.017 ng/mL (0.000-0.055) < 0.017 ng/mL (0.000-0.055) Total Protein 8.0 g/dL (6.4-8.2) Albumin 4.1 g/dL (3.4-5.0) Albumin/Globulin Ratio 1.1 (1.0-1.7) Urine Collection Type Void Urine Color Yellow Urine Clarity Clear Urine pH 6.0 (<5.0-8.0) Urine Specific [place] 1.020 (1.000-1.030) Urine Protein Negative mg/dL (NEG-TRACE) Urine Glucose (UA) Negative mg/dL (NEG) Urine Ketones (Stick) Negative mg/dL (NEG) Urine Blood Negative (NEG) Urine Nitrite Negative (NEG) Urine Bilirubin Negative (NEG) Urine Urobilinogen Dipstick 1.0 mg/dL (0.2 mg/dL) Urine Leukocyte Esterase Negative (NEG) Urine RBC 0 /HPF (0-2) Urine WBC 0 /HPF (0-4) Urine Squamous Epithelial Cells None /LPF Urine Bacteria 0 /HPF (0-FEW) Urine Mucus Marked /LPF Medications Active Scripts Medications Dose Route/Sig Max Daily Dose Days Date Category Ibuprofen 600 Mg Tablet 600 Mg PO PRN Q6HRS PRN 08/03/20 Reported Vitamin C (Ascorbic Acid) 500 Mg Tablet 500 Mg PO SUPPLEMENT PRN 08/03/20 Reported No Known Medications Prior To Admisstion (Info) Each 1 Each MC DAILY 08/03/20 Reported Impression . IMPRESSION: 1. Dyspnea secondary to pneumothorax. 2. Right spontaneous pneumothorax status post chest tube. 3. Chronic obstructive pulmonary disease. 4. Ex-smoker. 5. Ventral hernia. 6. History of COVID-19 in March, he was not hospitalized, he was in correctional facility. Plan . PLAN AND RECOMMENDATIONS: 1. Continue not smoking. 2. Titrate FiO2 to keep O2 saturation 92%. 3. cxr reviewed bulla vs ptx ct to water seal cxr pa and lat in am may need ct bf chest tube removal 4. bronchodilator. 5. He would require a CT of the chest at some point. 6. Lovenox for DVT prophylaxis. 7. The findings and recommendations were discussed with the patient and RN. TOBY LA MD Aug 05, 2020 09:53
--- NOTE | 2020-08-05 10:08 | PDOC ---
[employer] PROGRESS NOTE Date of Service DOS: DATE: 08/05/20 TIME: 10:01 Chief Complaint Chief Complaint SOA, spontaneous pneumothorax History of Present Illness History of Present Illness 08/05/2020 Patient seen and examined Discussed with RN Reviewed chart Patient was sitting in bed with NAD Clean, dry, intact dressing - right chest tube with suction Pulm following 08/04/2020 Pt seen and examined. Chart reviewed. Discussed with RN. Pt sitting up in bed, NAD. Clean, dry, intact dressing: stable R pigtail pleural cath Tolerating chest tube well, denies pain, denies SOA. Vitals/I&O Vitals/I&O: Vital Signs Date Time Temp Pulse Resp B/P (MAP) Pulse Ox O2 Delivery O2 Flow Rate FiO2 08/05/20 09:20 96 Room Air 08/05/20 07:00 98.9 78 18 131/86 (101) 98.9 I & O 08/04/20 08/04/20 08/05/20 15:00 23:00 07:00 Intake Total 400 ml 800 ml 120 ml Output Total 300 ml 250 ml 600 ml Balance 100 ml 550 ml -480 ml Physical Exam General: Alert, Cooperative, No acute distress Heart: Regular rate Lungs: Other (Right chest tube with suction) Abdomen: Normal bowel sounds, Soft, No tenderness, No hepatosplenomegaly, No masses Extremities: No clubbing, No cyanosis, No edema, Normal pulses, No tenderness/ swelling Skin: No rashes, No breakdown, No significant lesion Review of Systems Review of Systems: Denies pain Denies weakness Assessment and Plan Assessmemt and Plan Problems Medical Problems: (1) Spontaneous pneumothorax Status: Acute Assessment: Dyspnea secondary to spontaneous pneumothorax COPD - ex-smoker Ventral hernia History of Covid-19 in March 2020 - at correctional facility Plan: Continue R chest tube suction Cardiac monitoring Repeat CXR when ok with pulm Home meds DVT prophylaxis PT/OT Full code Hope to DC chest tube when ok with Pulm Appreciate subspecialty input. Comment Review of Relevant I have reviewed the following items elisa (where applicable) has been applied. Medications: Current Medications Medications (Trade) Dose Ordered Sig/David Route PRN Reason Start Time Stop Time Status Last Admin Dose Admin Albuterol/ Ipratropium (Duoneb) 3 ml RTQID NEB 08/04/20 12:00 08/05/20 08:00 Justifications for Admission Other Justification LIVAN IRENE III DO Aug 05, 2020 10:08
[2020-08-05 11:00] VITALS: BP 132/91
--- NOTE | 2020-08-05 11:30 | RAD ---
Chest radiograph 08/05/2020 9:43 AM INDICATION: Pneumothorax COMPARISON: None available TECHNIQUE: Frontal and lateral views of the chest are provided. FINDINGS: The cardiomediastinal silhouette is within normal limits. There are no pleural effusions. There is no pulmonary vascular congestion. Right apical bullous airspace disease noted. Adjacent pneumothorax would be difficult to assess. Findings are not significantly changed since the prior examination. The lungs are clear. No significant osseous abnormality is identified. IMPRESSION: Bullous airspace disease noted at the right lung apex. No associated pneumothorax is difficult to evaluate. No significant interval change is a prior examination. Electronically signed by: Jeanette Huang MD (08/05/2020 11:27 AM) [facility]
[2020-08-05 15:00] VITALS: BP 154/101
[2020-08-05 19:22] VITALS: BP 140/87
[2020-08-05] MEDS: KETOROLAC 30 MG/ML VIAL. IVP PRN (21:27)
[2020-08-05 22:50] VITALS: BP 131/86
[2020-08-06 03:27] VITALS: BP 123/77
[2020-08-06 07:00] VITALS: BP 133/80
[2020-08-06] MEDS: IPRATRPIUM/ALBUTEROL 0.5/2.5MG 3 ML NEBU. NEB SCH ×4 (07:19→20:39)
--- NOTE | 2020-08-06 08:36 | RAD ---
Chest PA and lateral 08/06/2020. Reason for exam: Follow-up pneumothorax. Comparison is made with a study of the previous day. A small bore chest tube remains in place on the right. There is still some lucency at the apex. This could be a loculated pneumothorax or bulla. It appears unchanged. There is no other evidence for pneumothorax. No new infiltrate or effusion is seen. Heart size is normal. IMPRESSION: Stable appearance. Electronically signed by: Huber Coronado Jr., MD (08/06/2020 8:33 AM) [facility]
[2020-08-06] MEDS: traMADol 50 MG TABLET PO PRN ×2 (09:07→20:18)
[2020-08-06] MEDS: ENOXAPARIN 40 MG/0.4 ML SYRINGE. SQ SCH (09:07)
--- NOTE | 2020-08-06 10:01 | PDOC ---
PULMONARY PROGRESS NOTES DATE: 08/06/20 TIME: 09:55 Subjective pt. remains on R/A No SOA, No cough, No CP No overnight concerns from Nursings Vitals Vital Signs Date Time Temp Pulse Resp B/P (MAP) Pulse Ox O2 Delivery O2 Flow Rate FiO2 08/06/20 09:07 96 Room Air 08/06/20 07:00 97.4 89 16 133/80 (97) 97.4 ROS: No Nausea, No Chest Pain, No Abdominal Pain, No Increase Cough General: Alert, Oriented X4 HEENT: Other (nc at perrl ) Lungs: Clear Cardiovascular: S1, S2 Abdomen: Soft, Non-tender Neuro Exam: Alert Extremities: No Edema Skin: Warm Medications Active Scripts Medications Dose Route/Sig Max Daily Dose Days Date Category Ibuprofen 600 Mg Tablet 600 Mg PO PRN Q6HRS PRN 08/03/20 Reported Vitamin C (Ascorbic Acid) 500 Mg Tablet 500 Mg PO SUPPLEMENT PRN 08/03/20 Reported No Known Medications Prior To Admisstion (Info) Each 1 Each MC DAILY 08/03/20 Reported Impression . IMPRESSION: 1. Dyspnea secondary to pneumothorax. 2. Right spontaneous pneumothorax status post chest tube. 3. Chronic obstructive pulmonary disease. 4. Ex-smoker. 5. Ventral hernia. 6. History of COVID-19 in March, he was not hospitalized, he was in correctional facility. Plan . PLAN AND RECOMMENDATIONS: Remains on Room air S/P right side lateral Chest tube placed 08/04, chest tube now on water seal for 24 hours, no air leak CXR reviewed: cannot exclude apical pneumothorax, however blebs in [place], will obtain non-contrast CT If no pneumothorax on CT, will clamp Chest tube for 24 hours and if stable will D/C chest tube Continue not smoking bronchodilator. DVT/GI PPX D/W RN and PT ERIKA WYLIE MD Aug 06, 2020 10:01
--- NOTE | 2020-08-06 11:17 | RAD ---
CT chest without contrast 08/06/2020. Reason for exam: Pneumothorax. Helical noncontrast images were performed. Sagittal and coronal reconstructions were obtained. Exposure: One or more of the following individualized dose reduction techniques were utilized for this examination: 1. Automated exposure control 2. Adjustment of the mA and/or kV according to patient size 3. Use of iterative reconstruction technique. Correlation is made with radiographs done earlier in the day. FINDINGS: There is a small bore chest tube entering on the right and extending into the minor fissure. There is a thin-walled area of air at the right lung apex. This appears to have a couple thin crossing septa. There is an adjacent smaller cavity just inferior and lateral to this. Anterior to the cavity is a small amount of air along the lung surface. Findings are thought to indicate bullous disease at the apex with minimal residual pneumothorax anteriorly. There is some atelectasis in the lower lobe and mild infiltrate posteriorly in the right upper lobe adjacent to the major fissure. The lungs otherwise are clear. There is a trace of pleural fluid on the right. The central airways show no obstruction. No enlarged lymph nodes are seen. Images through the upper abdomen show no abnormality. IMPRESSION: There is an encapsulated area of air density the right lung apex thought to represent a large bulla with smaller adjacent bulla. There is a small anterior pneumothorax on the right. Electronically signed by: Huber Coronado Jr., MD (08/06/2020 11:15 AM) [facility]
[2020-08-06 11:30] VITALS: BP 122/72
[2020-08-06] MEDS: FAMOTIDINE 20 MG TABLET. PO SCH ×2 (14:41→20:18)
--- NOTE | 2020-08-06 14:51 | PDOC ---
PROGRESS NOTES Date of Service: DATE: 08/06/20 TIME: 14:44 Chief Complaint Chief Complaint Dyspnea secondary to pneumothorax. Right spontaneous pneumothorax status post chest tube. History of Chronic obstructive pulmonary disease. Ex-smoker. quit about 7 years ago History of COVID-19 in March, he was not hospitalized, he was in correctional facility. Plan: Follow results of CAT scan If no further pneumothorax chest tube will be clamped for 24 hours Hopefully discontinue chest tube in the a.m. Supportive measures History of Present Illness History of Present Illness 08/06/2020 No acute events reported overnight, case discussed with nursing staff patient in no acute distress no complaints during my visit Recommendations from pulmonology noted 08/05/2020 Patient seen and examined Discussed with RN Reviewed chart Patient was sitting in bed with NAD Clean, dry, intact dressing - right chest tube with suction Pulm following 08/04/2020 Pt seen and examined. Chart reviewed. Discussed with RN. Pt sitting up in bed, NAD. Clean, dry, intact dressing: stable R pigtail pleural cath Tolerating chest tube well, denies pain, denies SOA. Vitals Vitals Vital Signs Date Time Temp Pulse Resp B/P (MAP) Pulse Ox O2 Delivery O2 Flow Rate FiO2 08/06/20 11:47 95 Room Air 08/06/20 11:30 97.5 82 16 122/72 (89) 97.5 Physical Exam General: Alert, Cooperative, No acute distress Heart: Regular rate Lungs: Clear Abdomen: Normal bowel sounds, Soft, No tenderness, No hepatosplenomegaly, No masses Extremities: No clubbing, No cyanosis, No edema, Normal pulses, No tenderness/swelling Skin: No rashes, No breakdown, No significant lesion Assessment and Plan Assessmemt and Plan Problems Medical Problems: (1) Spontaneous pneumothorax Status: Acute Comment Review of Relevant I have reviewed the following items elisa (where applicable) has been applied. Medications Current Medications Lidocaine/ Epinephrine (LIDOCAINE 2%-EPI 1:100,000 multi-dose) 20 ml 1X ONCE INJ Last administered on 08/03/20at 14:41; Start 08/03/20 at 14:30; Stop 08/03/20 at 14:31; Status DC Bupivacaine HCl (Sensorcaine Mpf 0.5%) 30 ml 1X ONCE INJ Last administered on 08/03/20at 14:41; Start 08/03/20 at 14:30; Stop 08/03/20 at 14:31; Status DC Fentanyl Citrate (Fentanyl 2ml Vial) 75 mcg 1X ONCE IV Last administered on 08/03/20at 14:56; Start 08/03/20 at 15:00; Stop 08/03/20 at 15:01; Status DC Ketorolac Tromethamine (Toradol 15mg Vial) 15 mg STK-MED ONCE .ROUTE ; Start 08/03/20 at 16:17; Stop 08/03/20 at 16:17; Status DC Ketorolac Tromethamine (Toradol 15mg Vial) 15 mg 1X ONCE IVP Last administered on 08/03/20at 16:44; Start 08/03/20 at 16:30; Stop 08/03/20 at 16:31; Status DC Fentanyl Citrate (Fentanyl 2ml Vial) 50 mcg 1X ONCE IVP Last administered on 08/03/20at 16:43; Start 08/03/20 at 16:30; Stop 08/03/20 at 16:31; Status DC Ondansetron HCl (Zofran) 4 mg PRN Q8HRS PRN IV NAUSEA/VOMITING; Start 08/03/20 at 17:30; Stop 08/03/20 at 17:57; Status DC Ondansetron HCl (Zofran) 4 mg PRN Q4HRS PRN IV NAUSEA/VOMITING; Start 08/03/20 at 18:00 Albuterol Sulfate (Ventolin Neb Soln) 2.5 mg PRN Q2HRS PRN NEB SHORTNESS OF BREATH; Start 08/03/20 at 18:00 Guaifenesin (Robitussin Dm) 10 ml PRN Q6HRS PRN PO COUGH; Start 08/03/20 at 18:00 Fentanyl Citrate (Fentanyl 2ml Vial) 50 mcg 1X ONCE IV Last administered on 08/03/20at 18:21; Start 08/03/20 at 18:15; Stop 08/03/20 at 18:16; Status DC Tramadol HCl (Ultram) 50 mg PRN Q6HRS PRN PO MODERATE-SEVERE PAIN Last administered on 08/06/20at 09:07; Start 08/03/20 at 20:30 Acetaminophen (Tylenol) 650 mg PRN Q6HRS PRN PO MILD PAIN / TEMP > 100.3'F; Start 08/03/20 at 20:30 Ketorolac Tromethamine (Toradol 30mg Vial) 30 mg PRN Q6HRS PRN IVP MODERATE PAIN Last administered on 08/05/20at 21:27; Start 08/03/20 at 20:30; Stop 08/08/20 at 20:29 Morphine Sulfate (Morphine Sulfate) 2 mg PRN Q4HRS PRN IV SEVERE PAIN 7-10; Start 08/03/20 at 20:30 Diphenhydramine HCl (Benadryl) 50 mg PRN QHS PRN PO INSOMNIA 2ND CHOICE; Start 08/03/20 at 20:30 Zolpidem Tartrate (Ambien) 5 mg PRN QHS PRN PO INSOMNIA; Start 08/03/20 at 20:30 Albuterol/ Ipratropium (Duoneb) 3 ml RTQID NEB ; Start 08/04/20 at 08:30; Stop 08/04/20 at 09:09; Status DC Enoxaparin Sodium (Lovenox 40mg Syringe) 40 mg Q24H SQ Last administered on 08/06/20at 09:07; Start 08/04/20 at 09:00 Albuterol/ Ipratropium (Duoneb) 3 ml RTQID NEB Last administered on 08/06/20at 11:19; Start 08/04/20 at 12:00 Famotidine (Pepcid) 20 mg BID PO Last administered on 08/06/20at 14:41; Start 08/06/20 at 11:00 Active Scripts Active Reported Ibuprofen 600 Mg Tablet 600 Mg PO PRN Q6HRS PRN Vitamin C (Ascorbic Acid) 500 Mg Tablet 500 Mg PO SUPPLEMENT PRN No Known Medications Prior To Admisstion (Info) Each 1 Each DAILY Vitals/I & O Vital Sign - Last 24 Hours 08/05/20 08/05/20 08/05/20 08/05/20 15:00 16:31 19:22 20:00 Temp 98.1 97.6 98.1 97.6 Pulse 101 90 Resp 20 16 B/P (MAP) 154/101 (118) 140/87 (104) Pulse Ox 93 94 O2 Delivery Room Air Room Air Room Air Room Air 08/05/20 08/05/20 08/05/20 08/05/20 20:28 21:26 22:26 22:50 Temp 97.6 97.6 Pulse 93 Resp 18 18 16 B/P (MAP) 131/86 (101) Pulse Ox 98 98 93 93 O2 Delivery Room Air Room Air Room Air Room Air 08/06/20 08/06/20 08/06/20 08/06/20 03:27 07:00 07:21 08:00 Temp 97.9 97.4 97.9 97.4 Pulse 80 89 Resp 16 16 B/P (MAP) 123/77 (92) 133/80 (97) Pulse Ox 94 95 96 O2 Delivery Room Air Room Air Room Air Room Air 08/06/20 08/06/20 08/06/20 08/06/20 09:07 11:20 11:30 11:47 Temp 97.5 97.5 Pulse 82 Resp 16 B/P (MAP) 122/72 (89) Pulse Ox 96 95 95 95 O2 Delivery Room Air Room Air Room Air Room Air Intake and Output 08/05/20 08/05/20 08/06/20 15:00 23:00 07:00 Intake Total 600 ml 420 ml 300 ml Output Total 750 ml Balance -150 ml 420 ml 300 ml Justicifation of Admission Dx: Justifications for Admission: Justification of Admission Dx: Yes JEANNEI RESTREPO MD Aug 06, 2020 14:51
[2020-08-06 15:28] VITALS: BP 136/62
[2020-08-06 19:55] VITALS: BP 135/60
[2020-08-06] MEDS: KETOROLAC 30 MG/ML VIAL. IVP PRN (20:19)
[2020-08-06 22:39] VITALS: BP 130/73
[2020-08-07 02:43] VITALS: BP 113/62
[2020-08-07 07:00] VITALS: BP 114/72
[2020-08-07] MEDS: IPRATRPIUM/ALBUTEROL 0.5/2.5MG 3 ML NEBU. NEB SCH ×4 (07:45→19:47)
[2020-08-07] MEDS: FAMOTIDINE 20 MG TABLET. PO SCH ×2 (08:40→21:24)
[2020-08-07] MEDS: traMADol 50 MG TABLET PO PRN ×2 (08:40→21:19)
[2020-08-07] MEDS: ENOXAPARIN 40 MG/0.4 ML SYRINGE. SQ SCH (08:40)
--- NOTE | 2020-08-07 10:21 | PDOC ---
PULMONARY PROGRESS NOTES DATE: 08/07/20 TIME: 10:21 Subjective Patient not short of air no chest pain no pressure Vitals Vital Signs Date Time Temp Pulse Resp B/P (MAP) Pulse Ox O2 Delivery O2 Flow Rate FiO2 08/07/20 08:40 97 Room Air 08/07/20 07:00 98.0 85 18 114/72 (86) 98.0 ROS: No Nausea, No Chest Pain, No Abdominal Pain, No Increase Cough General: Alert, Oriented X4 HEENT: Other (nc at perrl ) Lungs: Clear Cardiovascular: S1, S2 Abdomen: Soft, Non-tender Neuro Exam: Alert Extremities: No Edema Skin: Warm Medications Active Scripts Medications Dose Route/Sig Max Daily Dose Days Date Category Ibuprofen 600 Mg Tablet 600 Mg PO PRN Q6HRS PRN 08/03/20 Reported Vitamin C (Ascorbic Acid) 500 Mg Tablet 500 Mg PO SUPPLEMENT PRN 08/03/20 Reported No Known Medications Prior To Admisstion (Info) Each 1 Each MC DAILY 08/03/20 Reported Impression . IMPRESSION: 1. Dyspnea secondary to pneumothorax. 2. Right spontaneous pneumothorax status post chest tube. 3. Chronic obstructive pulmonary disease. 4. Ex-smoker. 5. Ventral hernia. 6. History of COVID-19 in March, he was not hospitalized, he was in correctional facility. Plan . Repeat chest x-ray in the a.m., if no pneumothorax will discontinue chest tube and discharge bronchodilator. DVT/GI PPX D/W RN and PT TINO MCCURDY MD Aug 07, 2020 10:21
[2020-08-07 10:28] VITALS: BP 126/70
--- NOTE | 2020-08-07 13:59 | PDOC ---
PROGRESS NOTES Date of Service: DATE: 08/07/20 TIME: 13:58 Chief Complaint Chief Complaint Dyspnea secondary to pneumothorax. Right spontaneous pneumothorax status post chest tube. History of Chronic obstructive pulmonary disease. Ex-smoker. quit about 7 years ago History of COVID-19 in March, he was not hospitalized, he was in correctional facility. Plan: Follow results of CAT scan continue chest tube management as per pulm linux consultant Hopefully discontinue chest tube soon Supportive measures History of Present Illness History of Present Illness 08/07/2020 Waiting for pulmonary evaluation regarding chest tube. No acute events reported overnight, case discussed with nursing staff patient in no acute distress no complaints during my visit 08/06/2020 No acute events reported overnight, case discussed with nursing staff patient in no acute distress no complaints during my visit Recommendations from pulmonology noted 08/05/2020 Patient seen and examined Discussed with RN Reviewed chart Patient was sitting in bed with NAD Clean, dry, intact dressing - right chest tube with suction Pulm following 08/04/2020 Pt seen and examined. Chart reviewed. Discussed with RN. Pt sitting up in bed, NAD. Clean, dry, intact dressing: stable R pigtail pleural cath Tolerating chest tube well, denies pain, denies SOA. Vitals Vitals Vital Signs Date Time Temp Pulse Resp B/P (MAP) Pulse Ox O2 Delivery O2 Flow Rate FiO2 08/07/20 11:31 96 Room Air 08/07/20 10:28 98.0 96 18 126/70 (88) 98.0 Physical Exam General: Alert, Cooperative, No acute distress Heart: Regular rate Lungs: Clear Abdomen: Normal bowel sounds, Soft, No tenderness, No hepatosplenomegaly, No masses Extremities: No clubbing, No cyanosis, No edema, Normal pulses, No tendernes s/swelling Skin: No rashes, No breakdown, No significant lesion Assessment and Plan Assessmemt and Plan Problems Medical Problems: (1) Spontaneous pneumothorax Status: Acute Comment Review of Relevant I have reviewed the following items elisa (where applicable) has been applied. Medications Current Medications Lidocaine/ Epinephrine (LIDOCAINE 2%-EPI 1:100,000 multi-dose) 20 ml 1X ONCE INJ Last administered on 08/03/20at 14:41; Start 08/03/20 at 14:30; Stop 08/03/20 at 14:31; Status DC Bupivacaine HCl (Sensorcaine Mpf 0.5%) 30 ml 1X ONCE INJ Last administered on 08/03/20at 14:41; Start 08/03/20 at 14:30; Stop 08/03/20 at 14:31; Status DC Fentanyl Citrate (Fentanyl 2ml Vial) 75 mcg 1X ONCE IV Last administered on 08/03/20at 14:56; Start 08/03/20 at 15:00; Stop 08/03/20 at 15:01; Status DC Ketorolac Tromethamine (Toradol 15mg Vial) 15 mg STK-MED ONCE .ROUTE ; Start 08/03/20 at 16:17; Stop 08/03/20 at 16:17; Status DC Ketorolac Tromethamine (Toradol 15mg Vial) 15 mg 1X ONCE IVP Last administered on 08/03/20at 16:44; Start 08/03/20 at 16:30; Stop 08/03/20 at 16:31; Status DC Fentanyl Citrate (Fentanyl 2ml Vial) 50 mcg 1X ONCE IVP Last administered on 08/03/20at 16:43; Start 08/03/20 at 16:30; Stop 08/03/20 at 16:31; Status DC Ondansetron HCl (Zofran) 4 mg PRN Q8HRS PRN IV NAUSEA/VOMITING; Start 08/03/20 at 17:30; Stop 08/03/20 at 17:57; Status DC Ondansetron HCl (Zofran) 4 mg PRN Q4HRS PRN IV NAUSEA/VOMITING; Start 08/03/20 at 18:00 Albuterol Sulfate (Ventolin Neb Soln) 2.5 mg PRN Q2HRS PRN NEB SHORTNESS OF BREATH; Start 08/03/20 at 18:00 Guaifenesin (Robitussin Dm) 10 ml PRN Q6HRS PRN PO COUGH; Start 08/03/20 at 18:00 Fentanyl Citrate (Fentanyl 2ml Vial) 50 mcg 1X ONCE IV Last administered on 08/03/20at 18:21; Start 08/03/20 at 18:15; Stop 08/03/20 at 18:16; Status DC Tramadol HCl (Ultram) 50 mg PRN Q6HRS PRN PO MODERATE-SEVERE PAIN Last administered on 08/07/20at 08:40; Start 08/03/20 at 20:30 Acetaminophen (Tylenol) 650 mg PRN Q6HRS PRN PO MILD PAIN / TEMP > 100.3'F; Start 08/03/20 at 20:30 Ketorolac Tromethamine (Toradol 30mg Vial) 30 mg PRN Q6HRS PRN IVP MODERATE PAIN Last administered on 08/06/20at 20:19; Start 08/03/20 at 20:30; Stop 08/08/20 at 20:29 Morphine Sulfate (Morphine Sulfate) 2 mg PRN Q4HRS PRN IV SEVERE PAIN 7-10; Start 08/03/20 at 20:30 Diphenhydramine HCl (Benadryl) 50 mg PRN QHS PRN PO INSOMNIA 2ND CHOICE; Start 08/03/20 at 20:30 Zolpidem Tartrate (Ambien) 5 mg PRN QHS PRN PO INSOMNIA; Start 08/03/20 at 20:30 Albuterol/ Ipratropium (Duoneb) 3 ml RTQID NEB ; Start 08/04/20 at 08:30; Stop 08/04/20 at 09:09; Status DC Enoxaparin Sodium (Lovenox 40mg Syringe) 40 mg Q24H SQ Last administered on 08/07/20at 08:40; Start 08/04/20 at 09:00 Albuterol/ Ipratropium (Duoneb) 3 ml RTQID NEB Last administered on 08/07/20at 11:30; Start 08/04/20 at 12:00 Famotidine (Pepcid) 20 mg BID PO Last administered on 08/07/20at 08:40; Start 08/06/20 at 11:00 Active Scripts Active Reported Ibuprofen 600 Mg Tablet 600 Mg PO PRN Q6HRS PRN Vitamin C (Ascorbic Acid) 500 Mg Tablet 500 Mg PO SUPPLEMENT PRN No Known Medications Prior To Admisstion (Info) Each 1 Each MC DAILY Vitals/I & O Vital Sign - Last 24 Hours 08/06/20 08/06/20 08/06/20 08/06/20 15:28 15:58 19:45 19:55 Temp 98.0 97.9 98.0 97.9 Pulse 90 87 Resp 18 B/P (MAP) 136/62 (86) 135/60 (85) Pulse Ox 94 96 98 O2 Delivery Room Air Room Air Room Air Room Air 08/06/20 08/06/20 08/06/20 08/06/20 20:18 20:40 21:18 22:39 Temp 98.0 98.0 Pulse 90 Resp 18 18 18 B/P (MAP) 130/73 (92) Pulse Ox 98 97 97 96 O2 Delivery Room Air Room Air Room Air Room Air 08/07/20 08/07/20 08/07/20 08/07/20 02:43 07:00 07:46 08:00 Temp 98.4 98.0 98.4 98.0 Pulse 95 85 Resp 18 18 B/P (MAP) 113/62 (79) 114/72 (86) Pulse Ox 97 93 97 O2 Delivery Room Air Room Air Room Air Room Air 08/07/20 08/07/20 08/07/20 08/07/20 08:40 09:40 10:28 11:31 Temp 98.0 98.0 Pulse 96 Resp 18 18 B/P (MAP) 126/70 (88) Pulse Ox 97 97 95 96 O2 Delivery Room Air Room Air Room Air Room Air Intake and Output 08/06/20 08/06/20 08/07/20 15:00 23:00 07:00 Intake Total 550 ml 360 ml Balance 550 ml 360 ml Justicifation of Admission Dx: Justifications for Admission: Justification of Admission Dx: Yes JEANNIE RESTREPO MD Aug 07, 2020 13:59
[2020-08-07 14:34] VITALS: BP 121/85
[2020-08-07 19:45] VITALS: BP 149/91
[2020-08-07] MEDS: KETOROLAC 30 MG/ML VIAL. IVP PRN (21:20)
[2020-08-07 23:10] VITALS: BP 128/87
[2020-08-08 03:35] VITALS: BP 119/78
[2020-08-08 07:00] VITALS: BP 126/76
[2020-08-08] MEDS: IPRATRPIUM/ALBUTEROL 0.5/2.5MG 3 ML NEBU. NEB SCH ×3 (07:30→15:28)
[2020-08-08] MEDS: FAMOTIDINE 20 MG TABLET. PO SCH (08:14)
[2020-08-08] MEDS: ENOXAPARIN 40 MG/0.4 ML SYRINGE. SQ SCH (08:14)
--- NOTE | 2020-08-08 08:40 | PDOC ---
PULMONARY PROGRESS NOTES DATE: 08/08/20 TIME: 08:40 Subjective Patient not short of air no chest pain no pressure Vitals Vital Signs Date Time Temp Pulse Resp B/P (MAP) Pulse Ox O2 Delivery O2 Flow Rate FiO2 08/08/20 07:30 96 Room Air 08/08/20 07:00 98.2 83 22 126/76 (93) 98.2 ROS: No Nausea, No Chest Pain, No Abdominal Pain, No Increase Cough General: Alert, Oriented X4 HEENT: Other (nc at perrl ) Lungs: Clear Cardiovascular: S1, S2 Abdomen: Soft, Non-tender Neuro Exam: Alert Extremities: No Edema Skin: Warm Medications Active Scripts Medications Dose Route/Sig Max Daily Dose Days Date Category Ibuprofen 600 Mg Tablet 600 Mg PO PRN Q6HRS PRN 08/03/20 Reported Vitamin C (Ascorbic Acid) 500 Mg Tablet 500 Mg PO SUPPLEMENT PRN 08/03/20 Reported No Known Medications Prior To Admisstion (Info) Each 1 Each MC DAILY 08/03/20 Reported Impression . IMPRESSION: 1. Dyspnea secondary to pneumothorax. 2. Right spontaneous pneumothorax status post chest tube. 3. Chronic obstructive pulmonary disease. 4. Ex-smoker. 5. Ventral hernia. 6. History of COVID-19 in March, he was not hospitalized, he was in correctional facility. Plan . Chest x-ray reviewed no pneumothorax will discontinue chest tube discharge today Discussed with TINO CRANE MD Aug 08, 2020 08:40
--- NOTE | 2020-08-08 10:32 | RAD ---
EXAM: PORTABLE CHEST 1V INDICATION: Reason: ptx 209 / Spl. Instructions: / History: . TECHNIQUE: Single view COMPARISON: 08/06/2020 chest x-ray FINDINGS: A right pleural drainage catheter remains present. The heart size is normal. The great vessels appear unremarkable. There is no hilar or mediastinal mass. The lungs are clear. There is a large right apical bulla still present.. There is no pleural effusion or pneumothorax. There are no significant osseous abnormalities. IMPRESSION: Large right apical bulla with stable small bore right pleural drainage catheter. No evidence of residual or recurrent pneumothorax. Electronically signed by: Humphrey Daniel MD (08/08/2020 10:29 AM) [id number]
[2020-08-08 11:00] VITALS: BP 144/80
--- NOTE | 2020-08-08 13:57 | NUR ---
Chest tube discontinued by Pulmonary at 1350
[2020-08-08 15:00] VITALS: BP 147/88
--- NOTE | 2020-08-08 15:52 | PDOC3 ---
Discharge Summary Visit Information Date of Admission: Aug 03, 2020 Date of Discharge: Aug 08, 2020 Admitting Diagnosis Comment: Chest pain - likely 2/2 PTX, will trend troponins, monitor on telemetry overnight. Tramadol/tylenol and toradol/morphine for pain control. Right pneumothorax - spontaneous, likely exertional with h/o COPD. Will cont on O2. Repeat CXR in AM. Cont low intermittent suction overnight to pleur-ex syst em. Consult Pulm Ex-smoker - reinforced cessation Final Diagnosis Problems Medical Problems: (1) Spontaneous pneumothorax Status: Acute Brief Hospital Course Allergies Allergies Coded Allergies Type Severity Reaction Last Updated Verified No Known Drug Allergies 08/03/20 No Vital Signs Vital Signs Date Time Temp Pulse Resp B/P (MAP) Pulse Ox O2 Delivery O2 Flow Rate FiO2 08/08/20 15:28 95 Room Air 08/08/20 11:00 98.2 93 20 144/80 (101) 98.2 Brief Hospital Course History of Present Illness History of Present Illness Mr Green is a 49-year-old male w/ PMHx COPD, ventral hernia who brought to the ED from [facility] due to shortness of breath and radiographic evidence of pneumothorax by the facility. On 07/31/2020 he was lifting weights when he felt short of breath and a few hours later noted a sharp right-sided chest wall pain and persistent dyspnea on exertion since then. EKG noted with HR117 bpm, sinus tachycardia, QRS 138 ms, QT/QTc 330/465 ms, incomplete right bundle branch block CXR reveals large right pneumothorax with left shift mediastinum. Labs with INR 1.1, WBC 9.4 Hb 15.4, platelets 331, NA 140, K4, BUN 14, CR 1, glucose 104, troponin 0, CK 551. Chest tube initially placed in ED slipped out, postplacement chest x-ray showed no improvement in pneumothorax, and chest tube was replaced and significant improvement with small residual pneumothorax after replacing chest tube placement. After his second chest tube patient did note some right-sided sharp pain had obvious increase in his visible ease of breathing. No airleak noted on Pleurx and was hooked up to suction. Admit to hospital for observation and management. 08/08/2020 Patient had his chest tube discontinued by pulmonology and he was deemed appropriate for discharge. All his concerns were addressed to the best of my abilities. 08/07/2020 Waiting for pulmonary evaluation regarding chest tube. No acute events reported overnight, case discussed with nursing staff patient in no acute distress no complaints during my visit 08/06/2020 No acute events reported overnight, case discussed with nursing staff patient in no acute distress no complaints during my visit Recommendations from pulmonology noted 08/05/2020 Patient seen and examined Discussed with RN Reviewed chart Patient was sitting in bed with NAD Clean, dry, intact dressing - right chest tube with suction Pulm following 08/04/2020 Pt seen and examined. Chart reviewed. Discussed with RN. Pt sitting up in bed, NAD. Clean, dry, intact dressing: stable R pigtail pleural cath Tolerating chest tube well, denies pain, denies SOA. Discharge Information Condition at Discharge: Improved Follow Up: Weeks Disposition/Orders: D/C to Another Facility Scheduled Info (No Known Medications Prior To Admisstion) Each, 1 EACH MC DAILY for unknown, (Reported) Entered as Reported by: Suzanne Frausto on 08/03/202054 Last Action: New Order on 08/03/202054 by Suzanne Frausto Scheduled PRN Ascorbic Acid (Vitamin C) 500 Mg Tablet, 500 MG PO supplement PRN for supplemnt, (Reported) Entered as Reported by: Suzanne Frausto on 08/03/202102 Last Action: Reviewed on 08/04/20703 by Suzanne Frausto Ibuprofen (Ibuprofen) 600 Mg Tablet, 600 MG PO PRN Q6HRS PRN for INFLAMMATION, (Reported) Entered as Reported by: Suzanne Frausto on 08/03/202102 Last Action: Reviewed on 08/04/20703 by Suzanne Frausto Justicifation of Admission Dx: Justifications for Admission: Justification of Admission Dx: Yes JEANNIE RESTREPO MD Aug 08, 2020 15:52
--- NOTE | 2020-08-08 16:21 | NUR ---
SS following for discharge planning. SS reviewed pt chart and discussed with pt RN. Discharge order on the chart. Clinical and discharge assessment ph[facility] and [facility] to [facility]. . SS made several attempts to contact the residential with no response. SS contacted [facility] in [place], [place], , and was notified that [facility] is not answering there phones. SS was notified that [facility]'s phones and computers have been down all afternoon. [facility] took pt information and contact information for the unit and reported that he would have the facility contact floor RN and arrange transportation to pickle maker pt. Case management informed.
--- NOTE | 2020-08-08 18:00 | NUR ---
Discharge Note: SULAIMAN MORALES [place] Discharge instructions and discharge home medications reviewed with Patient and DON meena [facility]. 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 All questions have been answered and understanding verbalized. Discontinued iv line and catheter intact.
== END 2020-08-08 18:02 | DRG 200 ==
LOC: EEVIPCON 14:01 → ER 14:01 → 2 NORTH 17:24
PROVIDERS: ADMIT Internal Medicine; ATTEND Internal Medicine
PROC: 0W9930Z Drainage of Right Pleural Cavity with Drainage Device, Percutaneous Approach (ICD-10-PCS; principal; 2020-08-03)
DX: J93.83 Other pneumothorax (principal); R65.10 Systemic inflammatory response syndrome (SIRS) of non-infectious origin without acute organ dysfunction; I45.10 Unspecified right bundle-branch block; J44.9 Chronic obstructive pulmonary disease, unspecified; K43.9 Ventral hernia without obstruction or gangrene; Z86.19 Personal history of other infectious and parasitic diseases; Z20.828 Contact with and (suspected) exposure to other viral communicable diseases; Z79.899 Other long term (current) drug therapy; Z71.6 Tobacco abuse counseling; F17.210 Nicotine dependence, cigarettes, uncomplicated
CPT/HCPCS: 36415; 71045; 71046; 71250; 80048; 80053; 81001; 82553; 83735; 84484; 85025; 85610; 85730; 93005; 94640; 94760; 96372; 96374; 96375; 96376; 99285; J1650; J1885; J3010; J3490; G0378; U0003-CS